=== PATIENT | male | born 1990 | race Hispanic/Latino ===

== ENCOUNTER 2018-06-03 12:56 | Emergency (ER) | payer BC, OTHER ==
[2018-06-03] MEDS ORDERED: IPRATROPIUM/ALBUTEROL SULFATE 3 ML SOLUTION IH ONE (14:11)
[2018-06-03] MEDS ORDERED: METHYLPREDNISOLONE SOD SUCC 125MG/2ML VIAL ONE (14:18)
== END 2018-06-03 16:05 | disposition home or self-care (01) ==
LOC: EDH 12:56
DX: J45.909 Unspecified asthma, uncomplicated (principal); I10 Essential (primary) hypertension
CPT/HCPCS: 94640; 96372; 99283; J2930

== ENCOUNTER 2019-08-04 05:11 | Emergency (ER) | payer OTHER ==
[2019-08-04] MEDS ORDERED: KETOROLAC TROMETHAMINE 60 MG/2 ML VIAL ONE (05:23)
== END 2019-08-04 08:32 | disposition home or self-care (01) ==
LOC: EDH 05:11
DX: M54.9 Dorsalgia, unspecified (principal); M62.838 Other muscle spasm; I10 Essential (primary) hypertension
CPT/HCPCS: 72100; 72131; 96372; 99284; J1885

== ENCOUNTER 2020-08-21 00:42 | Inpatient (IN) | payer OTHER ==
[~2020-08-21] VITALS: Ht 180.3 cm; Wt 127.0 kg
[2020-08-21] MEDS ORDERED: LIDOCAINE HCL 2% VISCOUS 15 ML UDCUP ONE (00:47)
[2020-08-21] MEDS ORDERED: MAG/ALUM/SIMETH 30 ML UDCUP ONE (00:47)
[2020-08-21] MEDS ORDERED: ASPIRIN 325 MG TABLET ONE (00:47)
[2020-08-21] MEDS ORDERED: NITROGLYCERIN 1GM OINT 1 INCH/1GM TD ONE (00:48)
[2020-08-21 00:57] LABS: BASOPHILS % (AUTO) 0.7 % (0.0-5.0); EOSINOPHILS % (AUTO) 1.3 % (0.0-8.0); HEMATOCRIT 45.4 % (42-54); LYMPHOCYTES % (AUTO) 35.9 % (21.0-51.0); MEAN CORPUSCULAR HEMOGLOBIN 28.4 pg (27.0-33.0); MEAN CORPUSCULAR HGB CONC 34.4 g/dL (32.0-36.0); MEAN CORPUSCULAR VOLUME 82.5 fL (79-99); MONOCYTES % (AUTO) 7.7 % (3.0-13.0); PLATELET COUNT (AUTO) 231 K/uL (130-400); RED CELL DISTRIBUTION WIDTH 12.7 % (11.0-15.5); WHITE BLOOD COUNT (AUTO) 7.5 K/uL (4.8-10.8)
[2020-08-21 01:26] LABS: CREATININE 1.2 mg/dL (0.5-1.5); POTASSIUM 3.7 mmol/L (3.5-5.1)
[2020-08-21 01:31] LABS: ALBUMIN 4.3 g/dL (3.5-5.0); BILIRUBIN,TOTAL 0.4 mg/dL (0.2-1.0); TOTAL PROTEIN, SERUM 7.9 g/dL (6.0-8.3)
[2020-08-21 02:08] LABS: APPEARANCE,URINE Clear (CLEAR); BILIRUBIN,URINE Negative (NEGATIVE); COLOR,URINE Yellow (YELLOW); GLUCOSE, URINE (UA) Negative (NEGATIVE); KETONES,URINE Negative (NEGATIVE); LEUKOCYTE ESTERASE ,URINE Negative (NEGATIVE); NITRATE,URINE Negative (NEGATIVE); OCCULT BLOOD,URINE Negative (NEGATIVE); PROTEIN,URINE Negative (NEGATIVE)
[2020-08-21 02:16] LABS: AMPHET/METH SCREEN,URINE NEGATIVE (NEGATIVE); BARBITURATE SCREEN, URINE NEGATIVE (NEGATIVE); BENZODIAZEPINES SCREEN,URINE NEGATIVE (NEGATIVE); CANNABINOID SCREEN,URINE NEGATIVE (NEGATIVE); COCAINE SCREEN,URINE NEGATIVE (NEGATIVE); OPIATE SCREEN,URINE NEGATIVE (NEGATIVE); PHENCYCLIDINE SCREEN,URINE NEGATIVE (NEGATIVE)
[2020-08-21] MEDS ORDERED: NITROGLYCERIN 0.4 MG SL TAB SL PRN (04:15)
[2020-08-21] MEDS ORDERED: 0.9%NACL 1000ML 1,000 ML IV SCH (04:15)
[2020-08-21] MEDS ORDERED: ACETAMINOPHEN WITH CODEINE 1 TAB TAB PO PRN (04:15)
[2020-08-21] MEDS ORDERED: ACETAMINOPHEN 325 MG TAB PO PRN ×2 (04:15)
[2020-08-21] MEDS ORDERED: MAG/ALUM/SIMETH 30 ML UDCUP PO PRN (04:15)
[2020-08-21] MEDS ORDERED: ONDANSETRON 4MG INJ IV PRN (04:15)
[2020-08-21] MEDS ORDERED: MORPHINE 4 MG SYG IV PRN (04:15)
[2020-08-21] MEDS ORDERED: LACTULOSE 20 GM/30 ML UDCUP PO PRN (04:15)
[2020-08-21] MEDS ORDERED: ONDANSETRON 4MG INJ ONE (05:35)
[2020-08-21] MEDS ORDERED: MORPHINE 2 MG SYG ONE (05:35)
[2020-08-21] MEDS ORDERED: HEPARIN 5,000 UNIT VIAL SQ SCH (05:45)
[2020-08-21 06:32] LABS: HEMOGLOBIN A1C 6.4 % (4.0-6.0)
[2020-08-21 06:39] LABS: CHOLESTEROL 171 mg/dL (<200); HDL CHOLESTEROL 42 mg/dL (29-71); LDL DIRECT 117 mg/dL (0-99); TRIGLYCERIDES 81 mg/dL (30-200)
[2020-08-21] MEDS ORDERED: AEC81 PO (08:00)
[2020-08-21] MEDS ORDERED: FAMOTIDINE 20MG TAB ONE (08:11)
[2020-08-21] MEDS ORDERED: ASPIRIN 81MG CHEW TAB ONE (08:11)
[2020-08-21] MEDS ORDERED: ASPIRIN 325 MG TABLET PO SCH (09:00)
[2020-08-21] MEDS ORDERED: FAMOTIDINE 20MG VIAL IV SCH (09:00)
[2020-08-21] MEDS ORDERED: PANT40TA54 PO (09:22)
[2020-08-21] MEDS ORDERED: METF-445 PO (09:22)
[2020-08-21] MEDS ORDERED: LISI20TA24 PO (09:22)
[2020-08-21] MEDS ORDERED: ERGO500093 PO (09:22)
[2020-08-21] MEDS ORDERED: SERT-439 PO (09:22)
== END 2020-08-21 10:01 | disposition home or self-care (01) | DRG 303 ==
LOC: EDH 00:42 → EDHIP 04:09
PROVIDERS: ADMIT Family Medicine; ATTEND Family Medicine
DX: I25.10 Atherosclerotic heart disease of native coronary artery without angina pectoris (principal); E11.9 Type 2 diabetes mellitus without complications; E66.9 Obesity, unspecified; I25.9 Chronic ischemic heart disease, unspecified; Z68.39 Body mass index [BMI] 39.0-39.9, adult; E78.5 Hyperlipidemia, unspecified; F32.9 Major depressive disorder, single episode, unspecified; I10 Essential (primary) hypertension; K21.9 Gastro-esophageal reflux disease without esophagitis; Z80.6 Family history of leukemia; F41.9 Anxiety disorder, unspecified
CPT/HCPCS: 36415; 71045; 80053; 80061; 80305; 81003; 83036; 83690; 84484; 85025; 93005; G0378; J2405

== ENCOUNTER → 2023-05-10 | Outpatient (CLI) | payer BC ==
[~2023-05-10] MED LIST: AEC81 PO; ERGO500093 PO; LISI20TA24 PO; METF-445 PO; PANT40TA54 PO; SERT-439 PO
== END | disposition home or self-care (01) ==
LOC: RAH 08:30
PROVIDERS: ATTEND Family Medicine
DX: K76.0 Fatty (change of) liver, not elsewhere classified (principal); R41.9 Unspecified symptoms and signs involving cognitive functions and awareness; R74.01 Elevation of levels of liver transaminase levels
CPT/HCPCS: 70450; 76700

== ENCOUNTER 2023-09-20 12:59 | Emergency (ER) | payer OTHER, SELFPAY ==
[~2023-09-20] VITALS: Ht 180.3 cm; Wt 108.9 kg
[2023-09-20 13:58] LABS: BASOPHILS # (AUTO) 0.04 K/uL (0.00-0.20); BASOPHILS % (AUTO) 0.5 % (0.0-5.0); CREATININE 1.2 mg/dL (0.5-1.3); EOSINOPHILS % (AUTO) 1.3 % (0.0-8.0); HEMATOCRIT 45.4 % (42-54); IMMATURE GRANULOCYTE ABSOLUTE 0.05 K/uL (0-1); LYMPHOCYTES # (AUTO) 2.4 K/uL (1.0-4.8); LYMPHOCYTES % (AUTO) 30.4 % (21.0-51.0); MEAN CORPUSCULAR HEMOGLOBIN 28.4 pg (27.0-33.0); MEAN CORPUSCULAR HGB CONC 35.7 g/dL (32.0-36.0); MEAN CORPUSCULAR VOLUME 79.6 fL (79-99); MONOCYTES # (AUTO) 0.3 K/uL (0.1-1.0); NEUTROPHILS # (AUTO) 4.9 K/uL (1.8-7.7); NEUTROPHILS % (AUTO) 63.2 % (40.0-77.0); PLATELET COUNT (AUTO) 228 K/uL (130-400); POTASSIUM 3.8 mmol/L (3.5-5.1); WHITE BLOOD COUNT (AUTO) 7.8 K/uL (4.8-10.8)
[2023-09-20] MEDS: MORPHINE 2 MG SYG IVP ONE (13:58)
[2023-09-20] MEDS: 0.9%NACL 1000ML 1,000 ML IV ONE (15:05)
[2023-09-20] MEDS: INSULIN HUMULIN R 100 UNIT/ML 3ML IV ONE (15:05)
[2023-09-20] MEDS ORDERED: IOHEXOL 350 MG/ML 100ML INFUS..BTL IV ONE (15:22)
[2023-09-20 16:50] VITALS: BP 136/82; PULSE 90; RESP 16; O2SAT 98
[2023-09-20] MEDS ORDERED: AMOX-427 PO (16:55)
[2023-09-20] MEDS ORDERED: METF-444 PO (16:56)
== END 2023-09-20 17:11 | disposition home or self-care (01) ==
LOC: EDH 12:59
DX: L03.221 Cellulitis of neck (principal); E11.65 Type 2 diabetes mellitus with hyperglycemia; I10 Essential (primary) hypertension; E11.9 Type 2 diabetes mellitus without complications; Z79.82 Long term (current) use of aspirin; Z79.84 Long term (current) use of oral hypoglycemic drugs; Z79.899 Other long term (current) drug therapy; Z98.890 Other specified postprocedural states
CPT/HCPCS: 99285; 96374; 70491; 96361; 96375; 84484; 80048; 85025; 82948 ×2; 36415; 93005; J1815; J2270; J7030; Q9967

== ENCOUNTER → 2023-10-02 | Outpatient (CLI) | payer SELFPAY ==
[~2023-10-02] MED LIST changes: +AMOX-427 PO; +METF-444 PO
== END | disposition home or self-care (01) ==
LOC: RAH 08:37
PROVIDERS: ATTEND Family Medicine
DX: K21.9 Gastro-esophageal reflux disease without esophagitis (principal); R13.10 Dysphagia, unspecified
CPT/HCPCS: 74240